=== PATIENT | male | born 1970 | race Caucasian/White ===

== ENCOUNTER → 2020-10-24 | Outpatient (CLI) | payer OTHER ==
--- NOTE | 2020-11-09 11:18 | P.ARTDOP ---
Arterial Doppler LOWER EXTREMITY ARTERIAL DOPPLER: DATE OF SERVICE: 10/24/2020 Reason for study: Leg pain. Doppler waveforms: Multiphasic bilaterally throughout. Pulse volume recording: []. Pressure gradients: None. Ankle-brachial indices: Greater than 1 bilaterally. Toe brachial indices: 0.99 on the right, 0.87 on the left Impression: Normal study.
== END | disposition home or self-care (01) ==
LOC: RADUSWWP 12:15
PROVIDERS: ATTEND Physician Assistant
DX: I70.213 Atherosclerosis of native arteries of extremities with intermittent claudication, bilateral legs (principal)
CPT/HCPCS: 93922

== ENCOUNTER → 2022-11-21 | Outpatient (CLI) | payer OTHER ==
--- NOTE | 2022-11-21 10:54 | US ---
EXAMINATION TYPE: US liver DATE OF EXAM: 11/21/2022 COMPARISON: NONE CLINICAL HISTORY: R94.5 ABN LIVER FUNCTION TEST. Abnormal labs. GB removed. TECHNIQUE: Multiple sonographic images of the right upper quadrant are obtained. FINDINGS: EXAM MEASUREMENTS: Liver Length: 21.9 cm CBD: 0.7 cm Right Kidney: 13.0 x 5.2 x 5.0 cm Pancreas: Tail obscured by overlying bowel gas. Echogenic in appearance. Liver: Increased attenuation, decreased visualization of vessels suggestive of fatty infiltrate. En larged in size. Coarse. Gallbladder: Surgically absent Evidence for sonographic Damian's sign: neg CBD: wnl Right Kidney: No hydronephrosis or masses seen IMPRESSION: Hepatomegaly with mild fatty infiltration.
== END | disposition home or self-care (01) ==
LOC: RADUSWWP 09:13
PROVIDERS: ATTEND Physician Assistant
DX: K76.0 Fatty (change of) liver, not elsewhere classified (principal); R16.0 Hepatomegaly, not elsewhere classified; R94.5 Abnormal results of liver function studies
CPT/HCPCS: 76705

== ENCOUNTER 2023-06-25 08:39 | Day surgery (SDC) | payer OTHER ==
[2023-06-18 17:15] VITALS: BMI 35.8
[~2023-06-25 08:39] MED LIST: LACTATED RINGERS 1,000 ML IV SCH; LIDOCAINE 1% (10MG/ML) FOR IV START INTRADERMA PRN
[2023-06-25 09:10] VITALS: TEMP 97
[2023-06-25] MEDS ORDERED: PROPOFOL 10 MG/ML 20 ML VIAL IV ONE (09:17)
[2023-06-25 09:19] LABS: Glucose,Whole Blood 102 mg/dL (70-110)
--- NOTE | 2023-06-25 09:33 | P.PCN ---
Date of Procedure: 06/25/23 Procedure(s) Performed: BRIEF HISTORY: Patient is a 53-year-old pleasant white male scheduled for an elective colonoscopy as a part of screening for colorectal neoplasia. PROCEDURE PERFORMED: Colonoscopy biopsy. PREOPERATIVE DIAGNOSIS: Screening for colon cancer. IV sedation per Anesthesia. PROCEDURE: After informed consent was obtained, the patient, was brought into the endoscopy unit. IV sedation was administered by Anesthesia under continuous monitoring. Digital rectal examination was normal. Initially the Olympus CF-160 flexible video colonoscope was then inserted in the rectum, gradually advanced into the cecum without any difficulty. Careful examination was performed as the scope was gradually being withdrawn. Ileocecal valve and the appendiceal orifice were visualized and appeared normal. Prep was excellent. Mucosa of the cecum, ascending colon, appeared normal. In the transverse colon there was a 3-4 mm polyp that was removed by cold biopsy. Rest of the transverse colon, descending colon, sigmoid colon, and rectum appeared normal. Retroflexion was performed in the rectum and no lesions were seen. The patient tolerated the procedure well. IMPRESSION: 3-4 mm transverse colon polyp serous was cold biopsy Rest of the colon appeared normal RECOMMENDATIONS: Findings of this examination were discussed with the patient as well as his family.. Advised to follow with the biopsy results. If the biopsies adenoma he can have a repeat colonoscopy in 5 years
[2023-06-25 09:56] VITALS: BP 135/83; PULSE 55; RESP 18
== END 2023-06-25 10:15 | disposition home or self-care (01) ==
LOC: ORWHC2ENDO 08:39
PROVIDERS: ATTEND Internal Medicine Gastroenterology
DX: Z12.11 Encounter for screening for malignant neoplasm of colon (principal); D12.3 Benign neoplasm of transverse colon; I10 Essential (primary) hypertension; E78.5 Hyperlipidemia, unspecified; E11.9 Type 2 diabetes mellitus without complications; E07.9 Disorder of thyroid, unspecified; E66.9 Obesity, unspecified; Z68.35 Body mass index [BMI] 35.0-35.9, adult; Z79.810 Long term (current) use of selective estrogen receptor modulators (SERMs); Z79.84 Long term (current) use of oral hypoglycemic drugs; Z79.4 Long term (current) use of insulin; Z79.899 Other long term (current) drug therapy
CPT/HCPCS: 88305; 45380; J2704

== ENCOUNTER → 2024-04-23 | Outpatient (CLI) | payer OTHER ==
--- NOTE | 2024-04-23 12:17 | CTL ---
EXAMINATION TYPE: CT Low Dose Lung DATE OF EXAM ORDERED: 04/23/2024 HISTORY: 54-year-old male Z87.891, tobacco use, former smoker with 37 pack-year history. Lung cancer screening CT DLP: [address] CTDI: 3.41 mGy Automated exposure control for dose reduction was used. SCREENING VISIT: Baseline COMPARISON: None TECHNIQUE: Low dose computed tomography scan was performed through the chest at 1 mm thick sections a nd reconstructed images in multiple planes at 1 mm and [address] DIAGNOSTIC QUALITY: Limited, but interpretable FINDINGS: The heart is normal size without pericardial effusion. Aorta normal caliber with bovine configuration to the aortic arch. Single enlarged right paratracheal lymph node measuring 1.7 cm. Probably reactive. Otherwise, no thor acic lymphadenopathy by CT size criteria. Mild to moderate diffuse bronchial wall thickening. No consolidation or pleural effusion. * Tiny 3 mm calcified granuloma posterior right upper lobe, axial image 91. * Tiny 2 mm subpleural pulmonary nodule posterior left lower lobe, axial image 12. * No suspicious pulmonary nodules seen. Visualized upper abdomen further limited by large body habitus and noise. There may be underlying mil d fatty infiltration. Possible subtle contour nodularity of the liver. Consider liver ultrasound to e xclude possible cirrhotic morphology. 5 mm nonobstructive left renal calculus. Bones: Mild multilevel degenerative disc disease. IMPRESSION: 1. LungRADS 2, benign. A couple tiny pulmonary nodules measuring up to 3 mm on baseline screening. 2. A single enlarged right paratracheal lymph node measuring 1.7 cm may be reactive. Precautionary 3 month follow-up CT to ensure stability/resolution. 3. Mild to moderate diffuse bronchial wall thickening may be seen with bronchitis or asthma. 4. Recommend liver ultrasound to assess for hepatic steatosis or possible early cirrhosis CT LUNG RAD AND CT CHEST RECOMMENDATION: Lung-Rad 2 Benign Appearance or Behavior: Continue annual sc reening with LDCT in 12 months. S Modifier (other clinically significant findings): S, refer to impression #2 and #4 above.
== END | disposition home or self-care (01) ==
LOC: RADCTMAIN 11:38
PROVIDERS: ATTEND Family Medicine
DX: Z12.2 Encounter for screening for malignant neoplasm of respiratory organs (principal); J98.09 Other diseases of bronchus, not elsewhere classified; R91.8 Other nonspecific abnormal finding of lung field; Z87.891 Personal history of nicotine dependence
CPT/HCPCS: 71271

== ENCOUNTER → 2024-08-18 | Outpatient (CLI) | payer OTHER ==
--- NOTE | 2024-08-18 21:38 | CT ---
EXAMINATION TYPE: CT neck chest w con CT DLP: 1423 mGycm, Automated exposure control for dose reduction was used. DATE OF EXAM: 08/18/2024 2:58 PM COMPARISON: CT low-dose lung 04/23/2024. CLINICAL INDICATION:Male, 54 years old with history of R59.0 LOCALIZED ENLARGED LYMPH NODES;, Enlarge d lymph nodes TECHNIQUE: Standard enhanced CT of the neck and chest. Axial sections with coronal and sagittal refo rmats were obtained. Contrast used:100 mL of Isovue 300 with IV Contrast, (none if empty) Oral contrast used: (none if empty) FINDINGS: BRAIN: Visualized portions are grossly unremarkable. ORBITS: Unremarkable SINUSES: Grossly unremarkable. Suprahyoid Neck: The oropharynx, oral cavity, parapharyngeal and retropharyngeal spaces are clear and symmetric. The nasopharynx is unremarkable. Infrahyoid Neck: The larynx, hypopharynx, and supraglottic area are clear and symmetric. Parotid Glands: Unremarkable. Submandibular Glands: Unremarkable. MUSCULOSKELETAL: No acute osseous pathology. LYMPH NODES: No lymph nodes greater than 1 cm short axis identified within the neck.. VASCULAR STRUCTURES: Visualized major arteries are patent without evidence of aneurysm. Minimal ather osclerotic calcifications involving the left carotid bulb. THORACIC INLET/AIRWAY: Airway is patent. The lung apices are clear. SOFT TISSUES/THYROID: Thyroid and remainder of the soft tissues are unremarkable. OTHER: none. LUNGS/ PLEURA: No pleural effusion, pneumothorax, or focal consolidation. Few stable tiny pulmonary m icronodules. No new or enlarging pulmonary nodules. AIRWAY: Patent and unremarkable. HEART: Size within normal limits. No pericardial effusion. Small coronary arterial calcifications. MEDIASTINUM: Stable enlarged right paratracheal lymph node measuring up to 1.7 cm. No new adenopathy. VASCULATURE: No aortic aneurysm. MUSCULOSKELETAL: No acute osseous abnormalities SOFT TISSUES/LYMPH NODES: Unremarkable. LOWER NECK: No significant findings. UPPER ABDOMEN: Redemonstration of low-attenuation of the liver with possible subtle nodular contour t o the liver. IMPRESSION 1. Stable right peritracheal enlarged 1.7 cm lymph node. No other suspicious lymph nodes identified w ithin the neck or chest. 2. Fatty infiltration of the liver with possible cirrhosis. Correlation with liver function tests and consideration for liver ultrasound is recommended. [facility], , 08/18/2024 9:36 PM
== END | disposition home or self-care (01) ==
LOC: RADCTMAIN 14:13
DX: R59.0 Localized enlarged lymph nodes
CPT/HCPCS: 70491; 71260

== ENCOUNTER → 2024-12-23 | Outpatient (CLI) | payer OTHER ==
--- NOTE | 2024-12-23 08:22 | US ---
EXAMINATION TYPE: US liver DATE OF EXAM: 12/23/2024 COMPARISON: US 2021 CLINICAL INDICATION: Male, 54 years old with history of K74.60 UNSPECIFIED CIRRHOSIS OF LIVER; Hx cho lecystectomy, possible cirrhosis. TECHNIQUE: Grayscale and color Doppler imaging of the right upper quadrant. FINDINGS: EXAM MEASUREMENTS: Liver Length: 17.7 cm Gallbladder Wall: Surgically absent CBD: 0.69 cm, color Doppler imaging was utilized to isolate the common bile duct for measurement. Right Kidney: 13.4 x 6.5 x 5.2 cm HANDBOOK WRITER NOTES: *Exam is limited due to gas. Pancreas: Not well seen. Liver: Increased echogenicity and attenuation. Appears coarse in echogenicity. Measures upper limi ts. Gallbladder: Surgically absent CBD: Appears wnl Right Kidney: Enlarged. No hydronephrosis or masses seen The pancreas is obscured by overlying bowel gas. The liver is at the upper limits of normal for size and demonstrates increased echogenicity with coarsened appearance. This appearance limits evaluation for small intrahepatic masses. No overt surface nodularity. No gross evidence of mass. The gallbladde r surgically absent. The common bile duct appears within normal limits. The right kidney is mildly en larged without evidence of hydronephrosis, shadowing calculi or solid mass. IMPRESSION: 1. Findings suggestive of hepatic steatosis without overt cirrhotic appearance. No focal hepatic lesi on identified. 2. Postcholecystectomy changes. [facility], , 12/23/2024 8:19 AM
== END | disposition home or self-care (01) ==
LOC: RADUSWWP 07:50
PROVIDERS: ATTEND Family Medicine
DX: K74.60 Unspecified cirrhosis of liver (principal); Z90.49 Acquired absence of other specified parts of digestive tract
CPT/HCPCS: 76705

== ENCOUNTER → 2025-02-03 | Outpatient (CLI) | payer OTHER ==
--- NOTE | 2025-02-03 16:46 | MR ---
EXAMINATION TYPE: MR lumbar spine wo con DATE OF EXAM: 02/03/2025 COMPARISON: NONE HISTORY: Chronic LBP with BLE radiculopathy. TECHNIQUE: Multiplanar, multisequence imaging of the lumbar spine is performed without IV contrast. FINDINGS: Sagittal images of the lumbar spine show vertebral body heights and alignment to appear sat isfactory. There is disc desiccation at L3-L4 and L4-L5 levels but disc space heights are maintained. The conus medullaris is normal in position and signal ending at mid L1 level. The bone marrow sign al intensity is within normal limits. Axial images show mild facet arthropathy bilaterally at T12-L1 through L2-L3 levels. Axial images at L3-L4 level shows mild broad-based disc bulge with right paracentral disc protrusion minimally effacing the right anterior thecal sac and [id number] facet arthropathy bilaterally. Bilateral neural foramina are patent. Axial images at L4-L5 level shows central disc protrusion and annular tear minimally effacing anterio r thecal sac with mild/moderate facet arthropathy bilaterally. Bilateral neural foramina are patent. Axial images at the L5-S1 levels show [id number] facet arthropathy bilaterally. Spinal canal is preserved. Bilateral neuroforamina are patent. Paraspinal muscle bulk is maintained. IMPRESSION: Mild to moderate multilevel degenerative change in the lumbar spine as detailed above. [facility], , 02/03/2025 4:44 PM
== END | disposition home or self-care (01) ==
LOC: RADMRIMAIN 15:24
PROVIDERS: ATTEND Emergency Medicine Emergency Medical Services
DX: M47.26 Other spondylosis with radiculopathy, lumbar region (principal); M51.16 Intervertebral disc disorders with radiculopathy, lumbar region; M99.73 Connective tissue and disc stenosis of intervertebral foramina of lumbar region
CPT/HCPCS: 72148

== ENCOUNTER → 2025-03-07 | Outpatient (CLI) | payer OTHER ==
[2025-03-07 12:14] VITALS: BP 170/92; PULSE 82; RESP 18; TEMP 98.2
--- NOTE | 2025-03-07 15:24 | P.PAINPG ---
Objective - Vital Signs Vital signs: Vital Signs Temp 98.2 F 03/07/25 12:10 Pulse 82 03/07/25 12:10 Resp 18 03/07/25 12:10 BP 170/92 03/07/25 12:10 Pulse Ox 100 03/07/25 12:10 FiO2 Intake & Output 03/06/25 03/07/25 03/07/25 18:59 06:59 18:59 Weight 120.656 kg PQRS Measure Charge Sheet Mode of Arrival: Ambulatory Comment: HISTORY OF PRESENT ILLNESS: A 54 yr old male as a referral from the [facility] presents today w severe and chronic LBP > 1 yr secondary to radiculopathy, spondylosis and facet arthropathy without myelopathy for evaluation. Pt states pain level is provoked at /10 in intensity, constant, localized in the lumbar spine, predominantly axial, sjar[ in character w occasional shooting pain towards the knees and ankles. Pain is provoked by laying supine. Pain is alleviated by PT x 6 wks which ended in Jun 2024, physician guided home exercises 4-5 times weekly since mid Jun 2024, heat, medications, repositioning and rest . Oswestry axial pain score at 24. PMH: OA, HTN, Hyperlipidemia, IDDM II, Hypothyroidism, BPH PSH: Cholecystectomy, Rhinoplasty/ Septoplasty, R ACL Arthroscopy, L Fibular Chondromalacia SH: Hx of tobacco use, Occ ETOH use, No illicit drug use FH: Fa- CAD, DM. Mo- CAD, DM All: See list Meds: See list incl [place] 10/325mg #90, Baclofen, Neurontin, Ibu REVIEW OF ORGAN SYSTEMS: CONSTITUTIONAL: No fevers or chills. No recent weight l oss. NEUROLOGICAL: + numbness and tingling along the distal extremities. No seizure disorders or headaches. MUSCULOSKELETAL: + pain PSYCHIATRIC: Denies current depression or suicidal thoughts. Physical Examinations : Constitutional : Cooperative , not in acute distress . Neurologic : Cranial nerve II to XII intact. No focal neurological deficits. Psychiatric : alert & oriented x 3. Matching mood & appropriate affect. Judgment & insight intact. Musculoskeletal : Cervical Spine Motor strength in the deltoid and biceps: Normal right side. Normal Left side Motor strength biceps and the wrist extensors: Normal right side . Normal left side Motor strength in the triceps muscle: Normal right side. Normal left side Deep tendon reflexes: Normal at the biceps. Normal at Brachioradialis. Normal at triceps Vertebral body tenderness to deep palpation over Cervical facet loading test: positive bilaterally Spurling test: positive bilaterally Neck distraction test: positive bilaterally Cecilio sign: positive bilaterally Lumbar spine Motor strength lower extremities ,thigh and legs 5/5 Right side , 5/5 Left side Deep tendon reflexes : Normal Knee Jerk. Normal Ankle Jerk Vertebral body tenderness over L5 Packer Test positive BL L5-S1 Lumbar facet Loading Test: positive Right / positive Left Range of motion of the lumbar spine Flexion 30 degrees, extension 10 degrees Straight Leg Raise test: Left/ Right positive at degrees Jane test: positive right / positive left. Severe tenderness over the Sacroiliac joint on the Right / Left sides Gaenslen test: positive bilaterally Seated flexion test: positive bilaterally. Sacral spine : Severe tenderness over the Sacroiliac joint: right side / left side Range of motion: Flexion of the lumbar spine <60 degrees Range of motion: Extension of the lumbar spine <20 degrees Gaenslen's Test positive Jane test: positive right side / left side Thigh Thrust Test Sacral Thrust Test Imaging: MRI non contrast of the lumbar spine from 02/03/2025 reviewed Assessment/ Plan : L4-S1 radiculopathy Recommendation of HOLLY L5-S1 #1 and medication management. Opiate/ narcotic agreement signed 03/07/25. Percocet 10/325mg #90 w 1 RF. Use, side effects, adverse reactions and safe storage discussed. Aware to discontinue [place]. Would benefit from consultation with orthopedic surgery regarding myelopathy. Will contact the [facility] for a referral to Dr. Hodgson. Risks, benefits of procedure discussed and patient verbalized understanding. Admits to anti- coagulant use or medical history of diabetes. Protocol for discontinuation/ continuation of medications amparo procedure discussed. Minimal anesthesia provided, if clinically indicated, consisting of Versed and Fentanyl. All questions answered. I have spent greater than 30 minutes on patient care today. Dr Minor was available by phone for the evaluation of this patient. The time was used to review the medical records including relevant urine studies and Prescription history (MAPs), review of the available imaging, evaluation and examination of the patient, coordination of care with the medical staff and if applicable referring physicians, as well as creation of the medical record - Pain Location Bilateral Foot Non-Pharmacological Interventions: Heat Pharmacological Interventions: Topical Medication PQRS Narrative: Blood Pressure 170/92 Pain Intensity [Bilateral Foot 7 ] Scale Used Numeric (1 - 10) Hx Alcohol Use (MH) No Home Medications: Ambulatory Orders Baclofen 10 mg PO TID 06/18/23 Insulin Aspart [NovoLOG] 20 units SQ BID 06/18/23 Insulin Glargine (Lantus) [Lantus Vial] 50 unit SQ QAM 06/18/23 Levothyroxine Sodium [Synthroid] 400 mcg PO DAILY 06/18/23 Losartan Potassium [Cozaar] 25 mg PO HS 06/18/23 Rosuvastatin Calcium 5 mg PO HS 06/18/23 Semaglutide [Ozempic] 1 mg SQ WATERS 06/18/23 Tamsulosin [Flomax] 0.4 mg PO HS 06/18/23 metFORMIN HCL 1,000 mg PO BID 06/18/23 oxyCODONE HCL/ACETAMINOPHEN [Percocet 10-325 mg Tablet] 1 each PO TID PRN 30 Days #90 tab 03/07/25 oxyCODONE HCL/ACETAMINOPHEN [Percocet 10-325 mg] 1 tab PO TID PRN 30 Days #90 tab 03/07/25 Controlled Substance Measures - Controlled Substance Measures Is patient prescribed a controlled substance at discharge?: Yes When asked, does pt state using other controlled substances?: No If prescribed controlled substance>3 days was MAPS reviewed?: Yes If Rx opioid, was Start Talking consent form obtained?: Yes Was information provided regarding opioid addiction?: Yes
== END ==
LOC: PNWHC3 11:35
PROVIDERS: ATTEND Specialist
DX: M47.26 Other spondylosis with radiculopathy, lumbar region (principal); Z87.891 Personal history of nicotine dependence; Z88.0 Allergy status to penicillin; Z88.6 Allergy status to analgesic agent
CPT/HCPCS: 99212

== ENCOUNTER 2025-03-18 06:43 | Day surgery (SDC) | payer OTHER ==
[2025-03-18 07:20] VITALS: TEMP 97.2
[2025-03-18 07:32] LABS: Glucose,Whole Blood 87 mg/dL (70-110)
[2025-03-18] MEDS: LACTATED RINGERS 1,000 ML IV SCH (07:32)
[2025-03-18] MEDS: LACTATED RINGERS 1,000 ML IV ONE (07:33)
[2025-03-18] MEDS ORDERED: methylPREDNISolone ACETATE 80 MG/ML 1 ML VIAL ONE (08:38)
[2025-03-18] MEDS ORDERED: MIDAZOLAM 2 MG/2 ML VIAL ONE (08:38)
[2025-03-18] MEDS ORDERED: fentaNYL (PF) 50 MCG/ML 2 ML AMP ONE (08:38)
[2025-03-18] MEDS ORDERED: IOPAMIDOL M200 10 ML VIAL ONE (08:38)
[2025-03-18] MEDS: IV FLUID CONTINUATION 1,000 ML IV ONE ×2 (08:55→09:22)
[2025-03-18 08:59] VITALS: RESP 18
--- NOTE | 2025-03-18 09:03 | FL ---
Fluoroscopy INDICATION: Pain FINDINGS: Fluoroscopy time: 6 seconds. Total dose area product (DAP) in uGy*m?, mGy*cm? (or similar): 0.66615 Images obtained: 1. Images document needle directed towards the L5-S1 level IMPRESSION: 1. Documentation of fluoroscopy. [facility], Workstation: [id number], 03/18/2025 9:01 AM
[2025-03-18 09:21] VITALS: BP 133/78; PULSE 65
== END 2025-03-18 09:35 | disposition home or self-care (01) ==
LOC: ORPAIN 06:43
PROVIDERS: ATTEND Pain Medicine Interventional Pain Medicine
DX: M47.26 Other spondylosis with radiculopathy, lumbar region (principal); Z88.0 Allergy status to penicillin; Z88.6 Allergy status to analgesic agent
CPT/HCPCS: 62323; J2250; J3010; Q9966; J1010

== ENCOUNTER → 2025-05-02 | Outpatient (CLI) | payer OTHER ==
[2025-05-02 07:54] VITALS: BP 156/84; PULSE 74; RESP 16; TEMP 97.3
--- NOTE | 2025-05-04 07:28 | P.PAINPG ---
Objective - Vital Signs Vital signs: Vital Signs Temp 97.3 F L 05/02/25 07:41 Pulse 74 05/02/25 07:41 Resp 16 05/02/25 07:41 BP 156/84 05/02/25 07:41 Pulse Ox 100 05/02/25 07:41 FiO2 Intake & Output 05/01/25 05/02/25 05/02/25 18:59 06:59 18:59 Weight 117.934 kg PQRS Measure Charge Sheet Mode of Arrival: Ambulatory Comment: HISTORY OF PRESENT ILLNESS: A 54 yr old male as a referral from the [facility] presents today w severe and chronic LBP > 1 yr secondary to radiculopathy, spondylosis and facet arthropathy without myelopathy for evaluation s/p HOLLY L5-S1 #1. Pt states he experienced % pain relief x 5 wks s/p procedure but also experienced "welts" afterwards. Pt states pain level is provoked at 3-8 /10 in intensity, constant, localized in the lumbar spine, predominantly axial, sjar[ in character w occasional shooting pain towards the knees and ankles. Pain is provoked by laying supine. Pain is alleviated by PT x 6 wks which ended in Jun 2024, physician guided home exercises 4-5 times weekly since mid Jun 2024, heat, medications, repositioning and rest . Oswestry axial pain score at 24. Interventional procedures include HOLLY L5-S1 x1 Medications include [place] 10/325mg #90, Baclofen, Neurontin, Ibu REVIEW OF ORGAN SYSTEMS: CONSTITUTIONAL: No fevers or chills. No recent weight loss. NEUROLOGICAL: + numbness and tingling along the distal extremities. No seizure disorders or headaches. MUSCULOSKELETAL: + pain PSYCHIATRIC: Denies current depression or suicidal thoughts. Physical Examinations : Constitutional : Cooperative , not in acute distress . Neurologic : Cranial nerve II to XII intact. No focal neurological deficits. Psychiatric : alert & oriented x 3. Matching mood & appropriate affect. Judgment & insight intact. Musculoskeletal : Cervical Spine Motor strength in the deltoid and bi ceps: Normal right side. Normal Left side Motor strength biceps and the wrist extensors: Normal right side . Normal left side Motor strength in the triceps muscle: Normal right side. Normal left side Deep tendon reflexes: Normal at the biceps. Normal at Brachioradialis. Normal at triceps Vertebral body tenderness to deep palpation over Cervical facet loading test: positive bilaterally Spurling test: positive bilaterally Neck distraction test: positive bilaterally Cecilio sign: positive bilaterally Lumbar spine Motor strength lower extremities ,thigh and legs 5/5 Right side , 5/5 Left side Deep tendon reflexes : Normal Knee Jerk. Normal Ankle Jerk Vertebral body tenderness over L5 Packer Test positive BL L5-S1 Lumbar facet Loading Test: positive Right / positive Left Range of motion of the lumbar spine Flexion 30 degrees, extension 10 degrees Straight Leg Raise test: Left/ Right positive at degrees Jane test: positive right / positive left. Severe tenderness over the Sacroiliac joint on the Right / Left sides Gaenslen test: positive bilaterally Seated flexion test: positive osman aterally. Sacral spine : Severe tenderness over the Sacroiliac joint: right side / left side Range of motion: Flexion of the lumbar spine <60 degrees Range of motion: Extension of the lumbar spine <20 degrees Gaenslen's Test positive Jane test: positive right side / left side Thigh Thrust Test Sacral Thrust Test Imaging: MRI non contrast of the lumbar spine from 02/03/2025 reviewed Assessment/ Plan : L4-S1 radiculopathy Recommendation of medication management. Opiate/ narcotic agreement signed 03/07/25. Percocet 10/325mg #90 w 1 RF. UDS collected 05/02/25. Use, side effects, adverse reactions and safe storage discussed. Aware to discontinue [place]. Would benefit from consultation with orthopedic surgery regarding myelopathy. Will contact the [facility] for a referral to Dr. Hodgson. Risks, benefits of procedure discussed and patient verbalized understanding. Admits to anti- coagulant use or medical history of diabetes. Protocol for discontinuation/ continuation of medications amparo procedure discussed. Minimal anesthesia provided, if clinically indicated, consisting of Versed and Fentanyl. All questions answered. I have spent greater than 30 minutes on patient care today. Dr Minor was available by phone for the evaluation of this patient. The time was used to review the medical records including relevant urine studies and Prescription history (MAPs), review of the available imaging, evaluation and examination of the patient, coordination of care with the medical staff and if applicable referring physicians, as well as creation of the medical record - Pain Location Bilateral Lower Back Non-Pharmacological Interventions: Exercise, Heat, Home Exercise, Ice, Inactivity, Physical Therapy, Position/Reposition, Relaxation Technique, Sitting, Stretching Pharmacological Interventions: Epidural, PRN Medication, Scheduled Medication, Topical Medication PQRS Narrative: Blood Pressure 156/84 Pain Intensity [Bilateral 8 Lower Back] Scale Used Numeric (1 - 10) Hx Alcohol Use (MH) No Home Medications: Ambulatory Orders Baclofen 10 mg PO TID 06/18/23 Insulin Aspart [NovoLOG] 16 units SQ BID 06/18/23 Insulin Glargine (Lantus) [Lantus Vial] 36 unit SQ QAM 06/18/23 Levothyroxine Sodium [Synthroid] 400 mcg PO DAILY 06/18/23 Losartan Potassium [Cozaar] 25 mg PO HS 06/18/23 Rosuvastatin Calcium 5 mg PO HS 06/18/23 Semaglutide [Ozempic] 2 mg SQ FR 06/18/23 Tamsulosin [Flomax] 0.4 mg PO HS 06/18/23 metFORMIN HCL 1,000 mg PO BID 06/18/23 oxyCODONE HCL/ACETAMINOPHEN [Percocet 10-325 mg] 1 tab PO TID PRN 30 Days #90 tab 05/02/25 oxyCODONE HCL/ACETAMINOPHEN [Percocet 10-325 mg] 1 tab PO TID PRN 30 Days #90 tab 05/02/25 Controlled Substance Measures - Controlled Substance Measures Is patient prescribed a controlled substance at discharge?: Yes If prescribed controlled substance>3 days was MAPS reviewed?: Yes If Rx opioid, was Start Talking consent form obtained?: Yes Was information provided regarding opioid addiction?: Yes
== END ==
LOC: PNWHC3 07:22
PROVIDERS: ATTEND Specialist
DX: M47.27 Other spondylosis with radiculopathy, lumbosacral region (principal); Z88.0 Allergy status to penicillin; Z88.8 Allergy status to other drugs, medicaments and biological substances
CPT/HCPCS: 80307; 99212

== ENCOUNTER → 2025-05-30 | Outpatient (CLI) | payer OTHER ==
--- NOTE | 2025-05-30 09:28 | US ---
EXAMINATION TYPE: US arterial LE single level DATE OF EXAM: 05/30/2025 8:32 AM COMPARISONS: 10/24/2020 CLINICAL INDICATION: Male, 55 years old with history of I73.9 PERIPHERAL VASCULAR DISEASE, UNSPECIFIE D; ARTERITIS TECHNIQUE: Systolic pressures were taken of the upper and lower extremity arteries with ankle-brachia l indices and toe brachial indices calculated bilaterally. History of: Smoker: Yes Hypertension: No Diabetic: Yes Hyperlipidemia: No TIA/CVA: No Previous Vascular Surgery: No CAD: No [place]: No Vascular Ulcers: No Claudication: No Gangrene: No FINDINGS: Doppler Waveforms: Right: Multiphasic Left: Multiphasic Brachial Artery systolic pressure: Right: 136 Left: 131 Posterior Tibial artery systolic pressure: Right: 181 Left: 174 Dorsalis Pedis artery systolic pressure: Right: 162 Left: 156 Toe artery systolic pressure: Right: 120 Left: 157 Ankle-Brachial Indices: Right: 1.3 Left: 1.3 Toe Brachial Indices: Right: 0.9 Left: 1.2 (Normal > 0.6; Mild 0.35 - 0.59, Moderate 0.12 - 0.34, Severe <0.12) IMPRESSION: RAIMUNDO: Right: Normal 0.9 - 1.4, Recommendation: None Left: Normal 0.9 - 1.4, Recommendation: None [facility], , 05/30/2025 9:26 AM
== END | disposition home or self-care (01) ==
LOC: RADUSWWP 08:28
PROVIDERS: ATTEND Family Medicine
DX: I73.9 Peripheral vascular disease, unspecified (principal)
CPT/HCPCS: 93922